=== PATIENT | female | born 2000 | race Hispanic/Latino ===

== ENCOUNTER 2022-03-13 04:22 | Inpatient (IN) | payer BC, OTHER ==
[2022-03-13 04:58] VITALS: BMI 41.1
[2022-03-13] MEDS: Acetaminophen 325 MG TAB PO PRN (06:44)
[2022-03-13] MEDS ORDERED: Bupivacaine 0.25% HCL 30 ML VIAL ONE (08:00)
[2022-03-13] MEDS ORDERED: Carboprost 250 MCG/ML AMP IM PRN (08:23)
[2022-03-13] MEDS ORDERED: Lidocaine 1% (PF) 30 ML VIAL SC PRN (08:23)
[2022-03-13] MEDS ORDERED: Diphenoxylate HCl/Atropine Tablet PO PRN (08:23)
[2022-03-13] MEDS ORDERED: hydrALAZINE 20 MG/ML VIAL SLOW IVP PRN (08:23)
[2022-03-13] MEDS ORDERED: Misoprostol 200 MCG TAB PR PRN (08:23)
[2022-03-13] MEDS ORDERED: Ondansetron PF 4 MG/2 ML Vial IVP PRN ×2 (08:23→16:54)
[2022-03-13] MEDS ORDERED: Promethazine HCl 25 MG/ML VIAL IM PRN ×2 (08:23→16:54)
[2022-03-13] MEDS ORDERED: NS w/ Oxytocin 30 units 500 ML IV SCH ×2 (08:30)
[2022-03-13] MEDS: Lactated Ringer's 1,000 ML IV SCH ×2 (09:30→10:40)
[2022-03-13 09:49] LABS: Hemoglobin 12.7 g/dL (12.0-15.5); Mean Corpuscular HGB CONC 33.1 g/dL (32.0-36.0); Mean Corpuscular Hemoglobin 24.9 pg (27.0-33.0); Mean Corpuscular Volume 75.3 fl (81.6-98.3); Mean Platelet Volume 11.1 fl (7.4-10.4); Platelet Count 238 10x3/uL (150-450); RBC Distribution Width 16.2 % (11.5-14.5); White Blood Cell (WBC) Count 14.5 10x3/uL (3.5-10.5)
[2022-03-13 10:18] LABS: Syphilis Antibody Nonreactive (Nonreactive); Syphilis Antibody Index 0.09 S/CO (<1.00 Non-Reactive)
[2022-03-13 10:20] LABS: HBSAg Index 0.21 S/CO (0-0.99); Hep B Surf Ag Non-Reactive S/CO (NonReactive)
[2022-03-13 10:50] LABS: SARS-CoV-2 NAA Rapid Test Not Detected (NotDetected)
[2022-03-13] MEDS: Butorphanol Tartrate 1 MG/ML VIAL SLOW IVP PRN ×2 (14:47→16:25)
[2022-03-13] MEDS ORDERED: Fentanyl 2 mcg/Bup 0.1% Cadd 100 ML ONE (16:29)
[2022-03-13] MEDS ORDERED: diphenhydrAMINE 50 MG/ML VIAL IVP PRN (16:54)
[2022-03-13] MEDS ORDERED: Moisturizing Cream (Eucerin) 113 GM JAR TOP PRN (16:54)
[2022-03-13] MEDS ORDERED: Lactated Ringer's 500 ML IV PRN (16:54)
[2022-03-13] MEDS ORDERED: Naloxone HCl 0.4 mg/ml Vial IVP PRN ×2 (16:54)
[2022-03-13] MEDS ORDERED: ePHEDrine Sulfate 50 MG/10 ML VIAL SLOW IVP PRN (16:54)
[2022-03-13] MEDS ORDERED: Acetaminophen 325 MG TAB PO PRN (16:54)
[2022-03-13] MEDS ORDERED: Communication Order-Pharmacy FS SCH (17:00)
[2022-03-13] MEDS: Fentanyl 2 mcg/Bupivacaine 0.1% Cassette 100 ML EPIDURAL SCH (23:23)
[2022-03-14] MEDS ORDERED: Calcium Carbonate 500 MG ChewTAB PO PRN (02:52)
[2022-03-14] MEDS: Fentanyl 2 mcg/Bupivacaine 0.1% Cassette 100 ML EPIDURAL SCH (05:32)
[2022-03-14] MEDS ORDERED: Boostrix 0.5 ML (Tdap) VIAL (>/=7 yrs of age) IM ONE (08:12)
[2022-03-14] MEDS ORDERED: Bisacodyl 10 MG SUPP PR PRN ×2 (08:12→14:53)
[2022-03-14] MEDS ORDERED: HYDROcodone/Acetaminophen 5/325 mg Tablet PO PRN ×4 (08:12→14:53)
[2022-03-14] MEDS ORDERED: hydrALAZINE 20 MG/ML VIAL SLOW IVP PRN ×2 (08:12→14:53)
[2022-03-14] MEDS ORDERED: Methylergonovine 0.2 MG/ML VIAL IM PRN (08:12)
[2022-03-14] MEDS ORDERED: Simethicone Chewable 80 MG TAB PO PRN (08:12)
[2022-03-14] MEDS ORDERED: Lanolin Ointment 7 GM TUBE TOP PRN (08:12)
[2022-03-14] MEDS ORDERED: Prenatal Vitamin 1 TAB PO SCH (09:00)
[2022-03-14] MEDS ORDERED: CEFAZOLIN 2 GM in Sodium Chloride 0.9% 100 ML IVPB SCH (09:30)
[2022-03-14] MEDS ORDERED: Azithromycin 500 MG in Sodium Chloride 0.9% 250 ML 250 ML IVPB SCH (10:00)
[2022-03-14] MEDS ORDERED: CEFAZOLIN 1 GM VIAL IVPB SCH (11:00)
[2022-03-14] MEDS ORDERED: Chloroprocaine 3% PF 20 ML VIAL ONE (11:10)
[2022-03-14] MEDS ORDERED: Oxytocin 10 UNITS/ML VIAL ONE ×2 (11:10→12:04)
[2022-03-14] MEDS ORDERED: Ondansetron PF 4 MG/2 ML Vial ONE (11:10)
[2022-03-14] MEDS ORDERED: Ketorolac Tromethamine 30 MG/ML VIAL ONE (11:10)
[2022-03-14] MEDS ORDERED: Dexamethasone 4 mg/ml Vial ONE (11:10)
[2022-03-14] MEDS ORDERED: Morphine PF 10 MG/10 ML VIAL ONE (11:10)
[2022-03-14] MEDS ORDERED: Ondansetron PF 4 MG/2 ML Vial IVP PRN ×2 (11:32→22:45)
[2022-03-14] MEDS ORDERED: diphenhydrAMINE 50 MG/ML VIAL IVP PRN ×2 (11:32→22:45)
[2022-03-14] MEDS ORDERED: Ketorolac Tromethamine 30 MG/ML VIAL IVP PRN ×2 (11:32→22:43)
[2022-03-14] MEDS ORDERED: Promethazine HCl 25 MG SUPP PR PRN ×2 (11:32→22:45)
[2022-03-14] MEDS ORDERED: Ondansetron HCl/PF 4 MG/2 ML Vial IVP PRN (11:32)
[2022-03-14] MEDS ORDERED: Fentanyl 100 MCG/2 ML VIAL SLOW IVP PRN (11:32)
[2022-03-14] MEDS ORDERED: Moisturizing Cream (Eucerin) 113 GM JAR TOP PRN ×2 (11:32→22:45)
[2022-03-14] MEDS ORDERED: Meperidine HCl/PF 25 MG/ML VIAL SLOW IVP PRN (11:32)
[2022-03-14] MEDS ORDERED: Naloxone HCl 0.4 mg/ml Vial IVP PRN ×2 (11:32)
[2022-03-14] MEDS ORDERED: Naloxone HCl 0.4 mg/ml Vial IV PRN ×4 (11:32→22:45)
[2022-03-14] MEDS ORDERED: Promethazine HCl 25 MG/ML VIAL IM PRN ×2 (11:32→22:45)
[2022-03-14] MEDS ORDERED: Ketorolac Tromethamine 30 MG/ML VIAL IVP SCH (11:45)
[2022-03-14] MEDS ORDERED: Communication Order-Pharmacy FS SCH (11:45)
[2022-03-14] MEDS: Acetaminophen 325 MG TAB PO PRN (14:52)
[2022-03-14] MEDS ORDERED: diphenhydrAMINE 25 MG CAP PO PRN (14:53)
[2022-03-14] MEDS: Ferrous Sulfate 325 MG TAB PO SCH (22:29)
[2022-03-14] MEDS: Docusate 100 MG CAP PO SCH (22:29)
[2022-03-14] MEDS ORDERED: NO PO,IM,IV OR SC NARCOTICS FOR 12HR EXCEPT BY ANESTHESIA PO SCH (22:45)
[2022-03-15] MEDS: HYDROcodone/Acetaminophen 5/325 mg Tablet PO PRN ×4 (05:54→20:07)
[2022-03-15] MEDS: Simethicone Chewable 80 MG TAB PO PRN ×2 (05:54→13:30)
[2022-03-15] MEDS: Ferrous Sulfate 325 MG TAB PO SCH ×2 (07:15→21:53)
[2022-03-15] MEDS: Prenatal Vitamin 1 TAB PO SCH (08:10)
[2022-03-15] MEDS: Docusate 100 MG CAP PO SCH ×2 (08:10→20:07)
[2022-03-15 08:55] LABS: Hemoglobin 9.7 g/dL (12.0-15.5); Mean Corpuscular HGB CONC 32.6 g/dL (32.0-36.0); Mean Corpuscular Hemoglobin 24.9 pg (27.0-33.0); Mean Corpuscular Volume 76.6 fl (81.6-98.3); Mean Platelet Volume 11.5 fl (7.4-10.4); Platelet Count 216 10x3/uL (150-450); RBC Distribution Width 16.2 % (11.5-14.5); Red Blood Cell (RBC) Count 3.89 10x6/uL (3.90-5.03); White Blood Cell (WBC) Count 20.8 10x3/uL (3.5-10.5)
[2022-03-15] MEDS: Ibuprofen 800 MG TAB PO SCH ×2 (13:29→21:53)
[2022-03-15] MEDS: Lactated Ringer's 1,000 ML IV SCH ×2 (19:23→19:24)
[2022-03-15] MEDS ORDERED: Ibuprofen 800 MG TAB PO SCH (22:00)
[2022-03-16] MEDS: HYDROcodone/Acetaminophen 5/325 mg Tablet PO PRN ×2 (02:25→08:08)
[2022-03-16] MEDS: Ibuprofen 800 MG TAB PO SCH ×3 (05:15→20:59)
[2022-03-16] MEDS: Ferrous Sulfate 325 MG TAB PO SCH ×2 (08:08→20:58)
[2022-03-16] MEDS: Docusate 100 MG CAP PO SCH ×2 (08:08→20:58)
[2022-03-16] MEDS: Prenatal Vitamin 1 TAB PO SCH (08:08)
[2022-03-16 20:14] VITALS: TEMP 98.3
[2022-03-17] MEDS: Ibuprofen 800 MG TAB PO SCH ×2 (05:47→13:22)
[2022-03-17 07:55] VITALS: BP 121/69
[2022-03-17] MEDS: Prenatal Vitamin 1 TAB PO SCH (08:42)
[2022-03-17] MEDS: HYDROcodone/Acetaminophen 5/325 mg Tablet PO PRN (08:43)
[2022-03-17] MEDS: Ferrous Sulfate 325 MG TAB PO SCH (08:43)
[2022-03-17] MEDS: Docusate 100 MG CAP PO SCH (08:43)
== END 2022-03-17 13:30 | disposition home or self-care (01) | DRG 788 ==
LOC: CSHLD/OP 04:22 → CSHLD 10:16 → CSHPP 03-14 15:01
PROVIDERS: ADMIT Obstetrics & Gynecology; ATTEND Obstetrics & Gynecology
PROC: 10H07YZ Insertion of Other Device into Products of Conception, Via Natural or Artificial Opening (ICD-10-PCS; 2022-03-13)
PROC: 10D00Z1 Extraction of Products of Conception, Low, Open Approach (ICD-10-PCS; principal; 2022-03-14)
DX: O98.52 Other viral diseases complicating childbirth (principal); Z3A.40 40 weeks gestation of pregnancy; Z37.0 Single live birth; Z20.822 Contact with and (suspected) exposure to COVID-19; Z90.49 Acquired absence of other specified parts of digestive tract; Z79.899 Other long term (current) drug therapy; O32.4XX0 Maternal care for high head at term, not applicable or unspecified; B00.9 Herpesviral infection, unspecified; O76 Abnormality in fetal heart rate and rhythm complicating labor and delivery; O62.2 Other uterine inertia
CPT/HCPCS: 36415; 51702; 85027; 86780; 86850; 86900; 86901; 87340; 99285; J0456; J0595; J1100; J1885; J2210; J2274; J2400; J2405; J2590; J3490; J7050; J7120; S0020; U0002

== ENCOUNTER 2022-03-24 19:56 | Emergency (ER) | payer OTHER ==
[~2022-03-24 19:56] MED LIST: Iopamidol 300 61% 100 ML VIAL FS ONE
== END 2022-03-24 23:45 | disposition home or self-care (01) ==
LOC: CSHERS 19:56
DX: O9A.23 Injury, poisoning and certain other consequences of external causes complicating the puerperium (principal); T81.30XA Disruption of wound, unspecified, initial encounter; L03.311 Cellulitis of abdominal wall
CPT/HCPCS: 74177; 87070; 87077; 87205; Q9967

== ENCOUNTER 2022-05-01 14:53 | Outpatient (CLI) | payer OTHER | END 2022-05-01 14:54 | disposition home or self-care (01) | LOC: CSHULT 14:53 | PROVIDERS: ATTEND Advanced Practice Midwife | DX: R10.13 Epigastric pain (principal); K80.20 Calculus of gallbladder without cholecystitis without obstruction | CPT/HCPCS: 76705 ==

== ENCOUNTER 2023-02-11 11:43 | Emergency (ER) | payer OTHER, SELFPAY ==
[2023-02-11 12:48] LABS: ALT (SGPT) 15 U/L (8-55); AST (SGOT) 14 U/L (5-34); Albumin 4.2 g/dL (3.5-5.0); Alkaline Phosphatase 60 U/L (40-100); Anion Gap 13 mmol/L (10-20); BUN (Urea Nitrogen) 7 mg/dL (7.0-18.7); Bilirubin, Total 0.7 mg/dL (0.2-1.2); Calc. Creatinine Clearance 0 mL/min (70-130); Calcium 9.4 mg/dL (7.8-10.44); Carbon Dioxide 20 mmol/L (22-29); Chloride 107 mmol/L (98-107); Estimated GFR 127; Globulin 3.6 g/dL (2.4-3.5); Glucose 101 mg/dL (70-105); Lipase 21 U/L (8-78); Potassium 3.8 mmol/L (3.5-5.1); Protein, Total 7.8 g/dL (6.0-8.3); Sodium 136 mmol/L (136-145)
[2023-02-11 12:49] LABS: #Eosinphils 0.2 10x3/uL (0.0-0.5); #Monocytes 0.7 10x3/uL (0.0-1.1); #Neutrophils 6.6 10x3/uL (1.5-8.4); %Basophils 0.4 % (0.0-2.0); %Lymphocytes 25.8 % (18.0-47.0); %Monocytes 6.7 % (0.0-10.0); %Neutrophils 64.8 % (40.0-75.0); Hematocrit 41.9 % (34.9-44.5); Hemoglobin 13.1 g/dL (12.0-15.5); Mean Corpuscular HGB CONC 31.3 g/dL (32.0-36.0); Mean Corpuscular Hemoglobin 23.3 pg (27.0-33.0); Mean Corpuscular Volume 74.6 fl (81.6-98.3); Mean Platelet Volume 11.1 fl (7.4-10.4); Platelet Count 282 10x3/uL (150-450); RBC Distribution Width 15.9 % (11.5-14.5); Red Blood Cell (RBC) Count 5.62 10x6/uL (3.90-5.03); White Blood Cell (WBC) Count 10.1 10x3/uL (3.5-10.5)
[2023-02-11 12:54] LABS: BHCG - Serum POSITIVE (NEGATIVE); Pregs Control Background? CLEAR/WHITE (CLR/WHITE); Pregs Control Bar Appear? YES (CONTROL BAR)
[2023-02-11 13:06] LABS: Bilirubin Neg (Negative); Blood, Urine 10 (Negative); Glucose, Urine (Dipstick) Normal (Negative); Ketone, Urine 15 mg/dL (Negative); Leukocyte Negative (Negative); Nitrite Negative (Negative); Protein, Urine (Dipstick) 15 mg/dl (Neg-Trace); Specific Gravity, Urine 1.025 (1.005-1.030); Urobilinogen Normal mg/dL (Less than 2)
[2023-02-11 13:08] LABS: Clarity Hazy (Clear)
[2023-02-11 13:09] LABS: Pregnancy Test - Urine (BHCG) POSITIVE (Negative); Pregu Control Background? CLEAR/WHITE (CLR/WHITE); Pregu Control Bar Appear? YES (CONTROL BAR); Specific Gravity 1.025 (1.002-1.036)
[2023-02-11 13:31] LABS: CAUTI Indications for Culture Dysuria,urgency,freq; RBC/HPF 0-3 HPF (0-3); WBC/HPF 0-3 HPF (0-3)
[2023-02-11 13:32] LABS: Bacteria/HPF 2+ HPF (None Seen); Mucous/LPF 3+ LPF (<2+)
[2023-02-11 13:36] LABS: Urine Culture Reflex No No
== END 2023-02-11 15:33 | disposition home or self-care (01) ==
LOC: CSHERS 11:43
DX: O99.891 Other specified diseases and conditions complicating pregnancy (principal); R10.30 Lower abdominal pain, unspecified; H00.014 Hordeolum externum left upper eyelid; Z3A.01 Less than 8 weeks gestation of pregnancy
CPT/HCPCS: 36415; 76856; 80053; 81001; 81025; 83690; 84702; 84703; 85025; 86900; 86901

== ENCOUNTER 2023-09-15 11:42 | Day surgery (SDC) | payer MEDICAID ==
[2023-09-15] MEDS ORDERED: hydrALAZINE 20 MG/ML VIAL SLOW IVP PRN (12:17)
[2023-09-15 12:26] VITALS: BMI 43.9
== END 2023-09-15 13:39 | disposition home or self-care (01) ==
LOC: CSHLD/OP 11:42
PROVIDERS: ATTEND Obstetrics & Gynecology
DX: Z36.89 Encounter for other specified antenatal screening (principal); O99.323 Drug use complicating pregnancy, third trimester; O99.513 Diseases of the respiratory system complicating pregnancy, third trimester; J45.909 Unspecified asthma, uncomplicated; F12.10 Cannabis abuse, uncomplicated; O34.211 Maternal care for low transverse scar from previous cesarean delivery; Z90.49 Acquired absence of other specified parts of digestive tract; Z79.82 Long term (current) use of aspirin; Z79.899 Other long term (current) drug therapy; Z91.013 Allergy to seafood; Z3A.36 36 weeks gestation of pregnancy
CPT/HCPCS: 59025; 76819; 99282

== ENCOUNTER 2023-10-06 10:03 | Inpatient (IN) | payer MEDICAID ==
[2023-10-03 13:06] LABS: Hematocrit 35.3 % (34.9-44.5); Hemoglobin 11.8 g/dL (12.0-15.5); Platelet Count 185 10x3/uL (150-450)
[2023-10-03 13:38] LABS: Syphilis Antibody Nonreactive (Nonreactive); Syphilis Antibody Index 0.07 S/CO (<1.00 Non-Reactive)
[2023-10-03 13:39] LABS: HBsAg Index 0.72 S/CO (0-0.99); Hep B Surf Ag Non-Reactive S/CO (NonReactive)
[~2023-10-06 10:03] MED LIST changes: +Bicitra 30 ML UDCUP PO PRN; -Iopamidol 300 61% 100 ML VIAL FS ONE; +Methylergonovine 0.2 MG/ML VIAL IM PRN; +Misoprostol 200 MCG TAB PR PRN; +Ondansetron PF 4 MG/2 ML Vial IVP PRN; +Oxytocin 30 units/NS 500 ML 500 ML IV SCH; +Promethazine HCl 25 MG/ML VIAL IM PRN; +Tranexamic Acid 1,000 MG/10 ML VIAL IVP PRN; +hydrALAZINE 20 MG/ML VIAL SLOW IVP PRN
[2023-10-06] MEDS: Famotidine/PF 20 mg/2ml Vial SLOW IVP PRN (11:44)
[2023-10-06] MEDS: Lactated Ringer's 1,000 ML IV SCH (11:44)
[2023-10-06] MEDS: CEFAZOLIN 2 GM in Sodium Chloride 0.9% 100 ML IVPB SCH (11:44)
[2023-10-06] MEDS ORDERED: Communication Order-Pharmacy FS SCH ×2 (14:15→23:45)
[2023-10-06] MEDS ORDERED: Naloxone HCl 0.4 mg/ml Vial IV PRN ×2 (14:15→23:31)
[2023-10-06] MEDS ORDERED: Meperidine HCl/PF 25 MG (1 mL) VIAL SLOW IVP PRN (14:15)
[2023-10-06] MEDS ORDERED: Promethazine HCl 25 MG/ML VIAL IM PRN ×3 (14:15→23:31)
[2023-10-06] MEDS ORDERED: fentaNYL 50 mcg/mL 1 mL Vial SLOW IVP PRN (14:15)
[2023-10-06] MEDS ORDERED: Naloxone HCl 0.4 mg/ml Vial IVP PRN ×4 (14:15→23:31)
[2023-10-06] MEDS ORDERED: diphenhydrAMINE 50 MG/ML VIAL IVP PRN ×2 (14:15→23:31)
[2023-10-06] MEDS ORDERED: Moisturizing Cream (Eucerin) 113 GM JAR TOP PRN (14:15)
[2023-10-06] MEDS ORDERED: Ondansetron PF 4 MG/2 ML Vial IVP PRN ×3 (14:15→23:31)
[2023-10-06] MEDS: Dexamethasone 10 MG/ML VIAL ONE (17:17)
[2023-10-06] MEDS ORDERED: Lanolin Ointment 7 GM TUBE TOP PRN (17:19)
[2023-10-06] MEDS ORDERED: Oxytocin 30 units/NS 500 ML 500 ML IV SCH (17:19)
[2023-10-06] MEDS ORDERED: Acetaminophen 325 MG TAB PO PRN (17:19)
[2023-10-06] MEDS ORDERED: Methylergonovine 0.2 MG/ML VIAL IM PRN (17:19)
[2023-10-06] MEDS ORDERED: hydrALAZINE 20 MG/ML VIAL SLOW IVP PRN (17:19)
[2023-10-06] MEDS ORDERED: Misoprostol 200 MCG TAB PR PRN (17:19)
[2023-10-06] MEDS: Morphine PF 10 MG/10 ML VIAL ONE (17:20)
[2023-10-06] MEDS: Ondansetron PF 4 MG/2 ML Vial ONE (17:20)
[2023-10-06] MEDS: Ketorolac Tromethamine 30 MG (1 mL) VIAL ONE (17:20)
[2023-10-06] MEDS: Phenylephrine 40 MG/NS 250 ML 250 ML ONE (17:21)
[2023-10-06] MEDS: Metoclopramide HCl 10 MG (2 mL) VIAL ONE (17:22)
[2023-10-06] MEDS: Oxytocin 10 UNITS/ML VIAL ONE ×2 (17:22→17:23)
[2023-10-06] MEDS: Ketorolac Tromethamine 30 MG (1 mL) VIAL IVP SCH (18:34)
[2023-10-06] MEDS: Ondansetron PF 4 MG/2 ML Vial IVP PRN (18:35)
[2023-10-06] MEDS: Simethicone Chewable 80 MG TAB PO PRN (20:45)
[2023-10-06] MEDS: Docusate 100 MG CAP PO SCH (20:45)
[2023-10-06] MEDS: Ibuprofen 800 MG TAB PO SCH (22:18)
[2023-10-06] MEDS: Ferrous Sulfate 325 MG TAB PO SCH (22:18)
[2023-10-07] MEDS: Ketorolac Tromethamine 30 MG (1 mL) VIAL IVP PRN (00:02)
[2023-10-07] MEDS: Moisturizing Cream (Eucerin) 113 GM JAR TOP PRN (03:22)
[2023-10-07 03:53] LABS: Hematocrit 33.9 % (34.9-44.5); Hemoglobin 11.3 g/dL (12.0-15.5); Mean Corpuscular HGB CONC 33.3 g/dL (32.0-36.0); Mean Corpuscular Hemoglobin 25.9 pg (27.0-33.0); Mean Corpuscular Volume 77.6 fL (81.6-98.3); Mean Platelet Volume 11.6 fL (7.4-10.4); Platelet Count 199 10x3/uL (150-450); RBC Distribution Width 14.9 % (11.5-14.5); Red Blood Cell (RBC) Count 4.37 10x6/uL (3.90-5.03); White Blood Cell (WBC) Count 16.3 10x3/uL (3.5-10.5)
[2023-10-07] MEDS: HYDROcodone/Acetaminophen 5/325 mg Tablet PO PRN (07:59)
[2023-10-07] MEDS: Prenatal Vitamin 1 TAB PO SCH (07:59)
[2023-10-07] MEDS: diphenhydrAMINE 25 MG CAP PO PRN (08:10)
[2023-10-07] MEDS: Ibuprofen 800 MG TAB PO SCH (14:29)
[2023-10-08] MEDS: Boostrix 0.5 ML (Tdap) VIAL (>/=7 yrs of age) IM ONE (08:09)
[2023-10-08 20:40] VITALS: TEMP 98.5
[2023-10-09 08:11] VITALS: BP 113/56
== END 2023-10-09 13:30 | disposition home or self-care (01) | DRG 788 ==
LOC: CSHLD 10:03 → CSHPP 16:10
PROVIDERS: ADMIT Obstetrics & Gynecology; ATTEND Obstetrics & Gynecology
PROC: 10D00Z1 Extraction of Products of Conception, Low, Open Approach (ICD-10-PCS; principal; 2023-10-06)
PROC: 3E033XZ Introduction of Vasopressor into Peripheral Vein, Percutaneous Approach (ICD-10-PCS; 2023-10-06)
DX: O34.211 Maternal care for low transverse scar from previous cesarean delivery (principal); O99.214 Obesity complicating childbirth; Z3A.39 39 weeks gestation of pregnancy; Z37.0 Single live birth; J45.909 Unspecified asthma, uncomplicated; O99.513 Diseases of the respiratory system complicating pregnancy, third trimester; E66.01 Morbid (severe) obesity due to excess calories; N73.6 Female pelvic peritoneal adhesions (postinfective)
CPT/HCPCS: 36415; 51702; 85014; 85018; 85027; 85049; 86780; 86850; 86900; 86901; 87340; J1100; J1885; J2274; J2405; J2590; J2765; J3490; J7120; S0028

== ENCOUNTER 2023-10-15 03:00 | Emergency (ER) | payer MEDICAID ==
[2023-10-15] MEDS ORDERED: Morphine 10 MG/ML VIAL ONE (03:16)
[2023-10-15 03:34] LABS: Bilirubin Neg (Negative); Blood, Urine 50 (Negative); Glucose, Urine (Dipstick) Normal (Negative); Ketone, Urine Negative (Negative); Leukocyte 25 (Negative); Nitrite Negative (Negative); Protein, Urine (Dipstick) Negative (Neg-Trace); Urobilinogen Normal mg/dL (Less than 2)
[2023-10-15 03:41] LABS: Clarity Clear (Clear)
[2023-10-15 03:45] LABS: Bacteria/HPF 1+ HPF (None Seen); CAUTI Indications for Culture Pelvic or flank pain; RBC/HPF 0-3 HPF (0-3); Urine Culture Reflex No No; WBC/HPF 0-3 HPF (0-3)
== END 2023-10-15 04:25 | disposition home or self-care (01) ==
LOC: CSHERS 03:00
DX: O90.89 Other complications of the puerperium, not elsewhere classified (principal); G89.18 Other acute postprocedural pain; R10.9 Unspecified abdominal pain
CPT/HCPCS: 81001; 96372; 99284; J2270

== ENCOUNTER 2023-12-11 12:08 | Emergency (ER) | payer MEDICAID, OTHER ==
[2023-12-11 13:55] LABS: Influenza A by NAA Not Detected (NotDetected); Influenza B by NAA Not Detected (NotDetected); SARS-CoV-2 NAA Rapid Test Not Detected (NotDetected)
== END 2023-12-11 15:12 | disposition home or self-care (01) ==
LOC: CSHERS 12:08
DX: B34.9 Viral infection, unspecified (principal)
CPT/HCPCS: 87081; 87430; 99284